=== PATIENT | female | born 1950 | race Caucasian/White ===

== ENCOUNTER 2017-02-11 10:07 | Emergency (ER) | payer MEDICARE, OTHER ==
[~2017-02-11] VITALS: Ht 157.5 cm; Wt 95.2 kg
--- NOTE | ~2017-02-11 | CT4 ---
[facility] A Service of [facility] & [facility] RADIOLOGY TEXT RESULTS PATIENT: HUMA JHAVERI LOCATION: [facility] : 46 UNIT #: [id number] AGE: [address]: Shima Major MD SEX: F ORDER DR: [id number] [facility] [address] [place], [place] [address] [id number] MR#: [id number] Acc #: [id number] NAME: HUMA JHAVERI. : 1950 SEX: F STUDY DATE/TIME: 02/11/2017 UNIT: [facility] ROOM: STUDY DESCRIPTION: CT Abd and Pelv Wo Cont Attending Physician: Shima Major M.D. Ordering Physician: Shima Major M.D. Primary Care Physician: Rodney Coronel M.D. MEDICAL IMAGING REPORT This report is preliminary unless electronic signature is present EXAM CT abdomen and pelvis without contrast 02/11/2017 1242 hours HISTORY 66-year-old woman with dizziness, weakness and nausea, vomiting beginning this morning. COMPARISON None. TECHNIQUE Helical non-contrasted images were obtained from the lung bases through the pubic symphysis. Sagittal and coronal reconstructions were performed. Total exam DLP 679 mGy/cm. This CT exam was performed with one or more of the following radiation dose reduction techniques: automatic exposure control, adjustment of mA and/or kV according to patient size, and iterative reconstruction. FINDINGS The lung bases are clear of acute densities. There is linear scar or atelectasis in the right middle lobe and the left lower lobe. There is no effusion. The distal esophagus demonstrates no thickening. Images through the abdomen demonstrate a normal non-contrasted appearance of the liver and spleen. There are surgical clips at the proximal stomach. The gallbladder is absent. There is no bile duct dilatation. The pancreas and adrenal glands are normal. The kidneys demonstrate a low-density lesion in the posterior [id number] pole right kidney measuring up to 4.5 cm and -6 Hounsfield units consistent with a benign cyst. There are no renal or ureteral calculi. The bladder is normal. The proximal small bowel is normal. There is a large midline ventral STS. [facility] A Service of [facility] RADIOLOGY TEXT RESULTS PATIENT: HUMA JHAVERI LOCATION: [facility] : 46 UNIT #: [id number] AGE: [address]: Shima Major MD SEX: F ORDER DR: defect with marked thinning of the rectus fascia and protrusion of multiple small bowels into the subcutaneous fat without true penetration through the fascia. This measures up to 12.4 cm in width by cephalocaudad dimension of 12.4 cm. It extends inferiorly into a panniculus, inferior and right of the umbilicus. There is no colonic wall thickening or colonic wall inflammation. Diverticula are present in the distal descending colon and sigmoid colon. 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 There is no adnexal mass or free fluid. There is degenerative disc disease and facet degenerative change in the lower lumbar spine. This results in a few millimeters of anterolisthesis of L4 on 5, felt chronic. IMPRESSION 1. No acute findings in the abdomen or pelvis. 2. There is a large area of thinning of the rectus fascia in the midline abdomen with protrusion of multiple loops of small bowel and a portion of the transverse colon into this protrusion without definite penetration through the fascia. This extends inferiorly to a panniculus. Transverse defect measures 12.4 x 12.4 cm. 3. Postop changes of the proximal stomach and cholecystectomy change. 4. No renal or ureteral calculi. 5. Degenerative disc disease and facet degenerative change in the lower lumbar spine resulting in a few millimeters of anterolisthesis of L4 on 5, felt chronic. Dictated by... Shanika Carlin M.D. THIS IS AN ELECTRONICALLY VERIFIED REPORT Shanika Carlin M.D. at 02/11/2017 5:27 PM NANCY/chris TD: 02/11/2017 16:13 JOB #: [id number] MEDICAL IMAGING REPORT Page 1 of 1 COPY
--- NOTE | ~2017-02-11 | EKG ---
PATIENT: HUMA JHAVERI UNIT #: [id number] Ventricular Rate: 90 BPM Atrial Rate: 90 BPM P-R Interval: 128 ms QRS Duration: 70 ms Q-T Interval: 374 ms QTC Calculation(Bezet): 457 ms P [place]: 35 degrees Calculated R [place]: 7 degrees Calculated T [place]: -4 degrees Diagnosis Line: Sinus rhythm with Premature atrial complexes Diagnosis Line: ST and T wave abnormality, consider anterior Diagnosis Line: ischemia Diagnosis Line: Abnormal ECG Diagnosis Line: No previous ECGs available Diagnosis Line: Confirmed by ADAN PNEA MD ([id number]) on 02/12/2017 Diagnosis Line: 7:13:24 PM INTERPRETING MD: BECKY YEAGER
[~2017-02-11 10:07] MED LIST: AMBIEN10 MG PO; AMOXICILLIN875 MG PO; BACLOFEN20 M1 PO; CELEBREX PO; FERRO-TIME325 MG PO; HYDROCODON-ACE1 EAC5 PO; HYZAAR 50/12.51 TAB PO; LEVOTHROID50 MCG PO; LEVOXYL50 MCG PO; LOSARTAN-HCTZ1 EACH PO; PREVACID15 M1 PO; PRILOSEC20 MG PO; VITAMIN B12-FO1 EACH PO; VITAMIN D2000 UNI1 PO; ZOLOFT PO; ZOLOFT100 MG PO; ZOLPIDEM TARTRA10 MG PO
[2017-02-11 11:09] LABS: BASOPHIL% 0.5 % (0-2.5); DIFF IND NO; EOSINOPHIL% 0.4 % (0.0-7.0); HEMATOCRIT 34.6 % (35.0-45.0); HEMOGLOBIN 11.6 gm/dL (12.0-16.0); LYMPHOCYTE# 0.2 X10e3 (1.0-3.5); LYMPHOCYTE% 3.1 % (17.0-45.0); MEAN CELL VOLUME 85.3 FL (83-96); MEAN CORPUSCULAR HEMOGLOBIN 28.7 PG (28-34); MEAN CORPUSCULAR HGB CONC 33.6 g/dL (30-36); MEAN PLATELET VOLUME 7.7 FL (6.5-11.5); MONOCYTE# 0.2 X10e3 (0-1.0); MONOCYTE% 2.6 % (3.0-12.0); NEUTROPHIL# 6.6 X10e3 (1.5-7.1); NEUTROPHIL% 93.4 % (40-75); PLATELET COUNT 300 X10e3 (140-420); RED BLOOD COUNT 4.05 X10e (3.90-5.30); RED CELL DISTRIBUTION WIDTH 14.9 % (11.0-15.5); WHITE BLOOD COUNT 7.1 X10e3 (4.0-10.5)
[2017-02-11 11:21] LABS: INR 0.9; PARTIAL THROMBOPLASTIN TIME 22.1 SECONDS (23.5-31.3); PROTHROMBIN TIME (PATIENT) 10.1 SECONDS (10.0-11.7)
[2017-02-11 11:25] LABS: POC - TROPONIN <0.05 ng/mL (<=0.05)
[2017-02-11 11:34] LABS: ALBUMIN SERUM 3.9 g/dL (3.5-5.0); BILIRUBIN, DIRECT 0.2 mg/dL (0.0-0.2); BILIRUBIN,INDIRECT 0.7 mg/dL (0.0-0.9); BILIRUBIN,TOTAL 0.9 mg/dL (0.2-2.0); CALCIUM SERUM 8.6 mg/dL (8.4-10.2); CREATININE SERUM 0.8 mg/dL (0.6-1.4); GLOM FILT RATE Estimated 75.8 mL/min (>60); MAGNESIUM 1.8 mg/dL (1.6-3.0); POTASSIUM 3.9 mmol/L (3.5-5.1); PROTEIN TOTAL SERUM 7.8 g/dL (6.0-8.3)
[2017-02-11 11:49] LABS: URINE SOURCE CLEAN CATCH
[2017-02-11 11:58] LABS: URINE APPEARANCE CLEAR; URINE BILIRUBIN NEG (NEG); URINE BLOOD NEG (NEG); URINE COLOR YELLOW; URINE GLUCOSE NEG (NEG); URINE KETONE NEG (NEG); URINE LEUKOCYTE ESTERASE 1+ (NEG); URINE NITRATE POS (NEG); URINE PROTEIN NEG (NEG); URINE SPECIFIC GRAVITY 1.016 (1.003-1.035); URINE UROBILINOGEN 0.2 MG/DL (NEG)
[2017-02-11 12:02] LABS: CULTURE INDICATED? YES; URBCS1 AUWI 0-2 /[HPF] (0-2); URINE BACTERIA AUWI 4+ (NEGATIVE); URINE SQUAMOUS EPITHELIAL CELL OCC /[HPF]
[2017-02-11 12:24] LABS: POC - CKMB <1.0 ng/mL (0.0-7.9); POC - TROPONIN <0.05 ng/mL (<=0.05)
[2017-02-11 14:05] LABS: POC - CKMB <1.0 ng/mL (0.0-7.9); POC - TROPONIN <0.05 ng/mL (<=0.05)
== END 2017-02-11 14:12 | disposition home or self-care (01) ==
LOC: CED 10:07
PROVIDERS: Student in an Organized Health Care Education/Training Program
DX: N39.0 Urinary tract infection, site not specified (principal); I10 Essential (primary) hypertension; Z90.49 Acquired absence of other specified parts of digestive tract
CPT/HCPCS: 36415; 74176; 80048; 80076; 81003; 82553; 83690; 83735; 84484; 85025; 85610; 85730; 87086; 87088; 87186; 93005; 96365; 96375; 99284; C9113; J0696; J2270; J2550